=== PATIENT | male | born 1955 | race Caucasian/White ===

== ENCOUNTER 2016-07-14 17:29 | Emergency (ER) | payer MEDICARE, OTHER ==
[~2016-07-14 17:29] MED LIST: ACET500CAP PO; AMITIZA24 PO; BABY OIL; BABY OIL OPH; BABY OIL OT; BABY OIL T; BAZA; BAZA TOP; BETADINE SOLUTIO4 OZ T; BISR PR; CALCIUM CARB PEG; CALCIUM WITH VIT D; CALMOSEPTINE EX; CALMOSEPTINE O2.5 OZ TOP; CALMOSEPTINE T; CARBAT200 PO; CARBAT300 PO; CARBATROL; CARBATROL PO; CAT1 PO; CATAPRES2 TOP; CATPATCH1 TOP; CENTRUM TAB1 TAB PO; CITRACAL PEG; CITRACAL PO; CLONIDINE; CLOTRIMAZOLE; CLOTRIMAZOLE T; CONSTULOSE PO; CULTURELLE OR; CULTURELLE PEG; Cetirizine; DIGESTIVE ADVANTAGE PO; DULCOLAX; EPITOL200 MG PO; EXTINA2 % TOP; FIBERSOURCE HN PEG; FIBERSOURCE PO; FLONASE NAS; FOLIC PEG; FOLIC PO; FORTEO SC; GAS-X80 MG PO; GGDM5ML PO; GGEXPUD PO; GOLD BOND POWDER TOP; HARRIS FLUSH ENEMA RC; HIBICLENS; HIBICLENS T; HYDRO; HYDROCO T; HYDROCORT12 EX; HYDROCORT12 TOP; HYDROCORTISONE; HYDROCORTISONE30 GM T; JOHNSON'S BABY OIL; Ketoconazole; LACT30UDL PO; LACTULOSE PO; LINZESS 145 M145 MCG PO; LINZESS 290 M290 MCG PO; Lactulose; MAGOX4 PO; MAXZIDE PEG; MAXZIDE PO; MIRALAXPKT OR; MIRALAXPKT PO; MULTIPLE VIT PO; MULTIVIT/MIN PEG; MULTIVIT/MIN PO; MULTIVITAMI1 PO; MYLICON 40 MG T40 MG PO; MYLICON 80 MG T80 MG PEG; MYLICON 80 MG T80 MG PO; MYTAB GAS80 MG PEG; MYTAB GAS80 MG PO; Miralax; NEUTRA PHOS; NEUTRA PHOS PO; NEXIUM PEG; NEXIUM40 MG PEG; NEXIUM40 MG PO; NEXIUM40 PEG; NEXIUM40 PO; NIZORAL A-D1 % TOP; NIZORSHAM T; NIZORSHAM TOP; Nexium; OS500+D PO; PHENYLEPHRIN10 MG PEG; POVIDONE IODINE 10% EX; POVIDONE IODINE 10% EXT; POVIDONE IODINE T; POVIDONE IODINE TOP; PRILO PO; PRILOSEC40 MG PO; PRIN10 PEG; PROBIOTIC CULTURELLE PO; SELENIUM SHAMPOO T; SELENIUM SHAMPOO TOP; SELENIUM SULFIDE 2.5 TOP; SELENIUM SULFIDE 2.5% EX; SELENIUM SULFIDE 2.5% TOP; SELSUN BLUE3 % EX; SENOKOTSYR PO; SUDAFED PO; Simethicone; T PO; TEG100B PO; TEG200 PO; TEGXR200 PO; THERA MULTI1 ML PEG; Tylenol; VIT C PO; VITAMIN C100 MG PO; VITAMIN D1000 UNI1 PO; VITAMIN D3 PEG; VITAMIN D31000 UNIT PEG; VITAMIN D31000 UNIT PO; VITC500 PO; Vitamin D; ZANTAC150 MG PO; ZESTRIL10 MG PEG; ZINC220C PO; ZOFRAN ODT4 MG PO; ZOFRAN4 PO; ZOFRANODT8 PEG; ZYRTEC ALLGY10 MG PEG; ZYRTEC ALLGY10 MG PO; [UNRECOGNIZED DRUG - CODE] PEG; [UNRECOGNIZED DRUG - CODE] PO; [UNRECOGNIZED DRUG - MIXTURE] PEG; [UNRECOGNIZED DRUG - OTHER]; [UNRECOGNIZED DRUG - OTHER]; [UNRECOGNIZED DRUG - OTHER] PEG; [UNRECOGNIZED DRUG - OTHER] PEG; [UNRECOGNIZED DRUG - OTHER] PO; [UNRECOGNIZED DRUG - OTHER] PO; [UNRECOGNIZED DRUG - OTHER] PO; [UNRECOGNIZED DRUG - OTHER] PR; [UNRECOGNIZED DRUG - OTHER] T; [UNRECOGNIZED DRUG - REMARK] RC; [UNRECOGNIZED DRUG - SUPPLY]; [UNRECOGNIZED DRUG - SUPPLY]
[2016-07-14 17:52] LABS: ASCORBIC ACID (UR NOT ORDER) 40 (NEG); BILIRUBIN, URINE NEGATIVE (NEG); ER URINALYSIS TAT 0 Hrs 10 Mins; KETONE, URINE NEGATIVE (NEG); LEUKOCYTE ESTERASE(NOT OR SMALL (NEG); NITRITE (URINE) NEG (NEG); WBC (NOT ORDERED) (RFLEX) 10 (0-5)
[2016-07-14 18:53] LABS: ER CBC TAT 0 Hrs 14 Mins; HEMATOCRIT 32.8 % (40.0-51.0); HEMOGLOBIN 11.5 g/dL (13.6-17.8); MEAN CORPUS HGB CONC 35.1 g/dL (32.0-36.0); MEAN CORPUSCULAR HEMOGLOB 30.9 pg (26.0-34.0); MEAN CORPUSCULAR VOLUME 88.2 fL (80-100); MEAN PLATELET VOLUME 9.7 fL (9.2-13.0); PLATELET COUNT 398 10/3/uL (150-400); RBC DISTRIBUTION WIDTH 12.4 % (12.0-16.0); RED CELL COUNT 3.72 10/6/uL (4.7-6.1); WHITE BLOOD CELLS 4.6 10/3/uL (4.5-10.5)
[2016-07-14 18:55] LABS: MANUAL DIFF YES %; PARTIAL THROMBO TIME 32.5 SEC (22.5-37.2); PROTIME (NOT ORD) 12.9 SEC (12.0-14.5)
[2016-07-14 19:00] LABS: A/G RATIO 0.7 (0.7-1.9); ALBUMIN 2.9 G/DL (3.5-5.0); ALKALINE PHOSPHATASE 145 U/L (45-117); BUN (BLOOD UREA NITROGEN) 10 MG/DL (6-23); CALCIUM, SERUM 8.1 MG/DL (8.5-10.4); CHLORIDE, SERUM 95 MMOL/L (96-112); CO2 (CARBON DIOXIDE) 27 MMOL/L (24-34); CREATININE 0.46 MG/DL (0.70-1.30); GFR AFRICAN AMERICAN 141 ML/MIN (>=60); GFR NON AFRICAN AMERICAN 122 ML/MIN (>=60); GLUCOSE, SERUM 89 MG/DL (60-99); SGOT(AST) 27 U/L (5-40); SGPT(ALT) 51 U/L (5-65); SODIUM, SERUM 132 MMOL/L (135-148); TOTAL BILIRUBIN 0.5 MG/DL (0-1.2); TOTAL PROTEIN 6.9 G/DL (6.0-8.5)
[2016-07-14 19:19] LABS: BAND NEUTROPHILS 1 %; EOSINOPHILS 5 %; EOSINOPHILS ABSOLUTE (CALC) 0.23 10/3/uL (0.0-0.53); ER DIFF TAT 0 Hrs 40 Mins; LYMPHOCYTES 32 %; LYMPHOCYTES ABSOLUTE (CALC) 1.47 10/3/uL (0.67-4.30); MONOCYTES 10 %; MONOCYTES ABSOLUTE (CALC) 0.46 10/3/uL (0.21-1.20); NEUTROPHILS ABSOLUTE (CALC) 2.44 10/3/uL (2.02-8.40); PLATELET ESTIMATE ADQ (ADEQUATE); RBC MORPHOLOGY NORM (NORMAL); SEGMENTED NEUTROPHIL (0) 52 %; TOTAL NUCLEATED CELLS 100
[2016-09-14] MEDS ORDERED: CATPATCH1 TOP (16:55)
[2016-09-14] MEDS ORDERED: FOLIC PEG (16:57)
[2016-09-14] MEDS ORDERED: KETOCONAZOLE SHAMPOO TOP (17:00)
[2016-11-27] MEDS ORDERED: COLACEUDL PEG (16:44)
[2016-11-27] MEDS ORDERED: [UNRECOGNIZED DRUG - OTHER] TOP (16:46)
[2016-11-27] MEDS ORDERED: CALMOSEPTINE O2.5 OZ TOP (16:48)
[2016-12-15] MEDS ORDERED: KCL20UDL PEG (12:57)
== END 2016-07-14 19:46 | disposition home or self-care (01) ==
LOC: ER 17:29
PROVIDERS: Nurse Practitioner Family
DX: S82.102A Unspecified fracture of upper end of left tibia, initial encounter for closed fracture (principal); S82.492A Other fracture of shaft of left fibula, initial encounter for closed fracture; I10 Essential (primary) hypertension; K21.9 Gastro-esophageal reflux disease without esophagitis; Z85.038 Personal history of other malignant neoplasm of large intestine; X58.XXXA Exposure to other specified factors, initial encounter
CPT/HCPCS: 71010; 73590-LT; 80053; 81001; 85025; 85610; 85730; 87077; 87086; 87186; 93971; 99284

== ENCOUNTER 2016-09-08 11:28 | Inpatient (IN) | payer MEDICARE, OTHER ==
--- NOTE | ~2016-09-08 | CN ---
Consultation Report [facility] [address] [place]. [address] NAME: LILLIANA ROME : 55 STATUS : ADM IN [facility]#: [id number] AGE: 60 ADM/REG DATE : 09/08/16 MR#: [id number] REPORT SERV DATE: 09/12/16 DICTATED BY: GABBY ALBA DATE: 09/12/16 REPORT STATUS : Draft TRANSCRIBED BY: MODKayla DATE: 09/12/16 NEUROLOGY CONSULTATION DATE OF CONSULTATION: 09/12/2016 REASON FOR CONSULTATION: Seizure and hyponatremia. HOSPITALIST: Rex Shaw M.D. HISTORY OF PRESENT ILLNESS: The patient is a 60-year-old male, who came into the hospital with two days worth of acute encephalopathy. According to the family and the staff at [facility], the patient is very jovial, he laughs and communicates with gestures. The staff noticed a drastic change in his behavior. He was brought to the emergency department at [facility]. On admission, it was found that his sodium level was 118, his potassium was 1.7, and his chloride was 70. The patient denied having any upper respiratory infection. He denied having any fever, chills, nausea, vomiting, or diarrhea. The patient has been on Tegretol therapy for many years for his seizures. At this point, the patient's Tegretol was stopped and he was placed on Keppra IV at 1000 mg and then changed to 500 mg IV b.i.d. The patient did not have any seizure activity during the abrupt change. PAST MEDICAL HISTORY: Cerebral palsy, mental retardation, quadriplegia, seizures, hypertension, hyperlipidemia, megacolon, Monmouth syndrome, history of small-bowel obstruction, sick sinus syndrome with pacemaker placement, peptic ulcer disease, Lynn's esophagitis, history of frequent aspiration pneumonia, frequent UTIs, colon cancer, bilateral retinal detachment and resultant blindness, folliculitis, nephrolithiasis, bilateral hip dislocation, levoscoliosis, and clubfeet. PAST SURGICAL HISTORY: Pacemaker placement, PEG tube placement, colectomy, cholecystectomy, and bilateral hip surgery. HOME MEDICATIONS: Dulcolax 10 mg p.r.n. at bedtime, Tegretol 200 mg q.i.d. for a total dose of 800 mg daily, vitamin D3 2000 units daily, Catapres TTS-one patch applied weekly, Nexium 40 mg b.i.d., folic acid 1 mg daily, Nizoral A-D 1% shampoo on Sunday and Sunday, multivitamin daily, simethicone 80 mg q.i.d., and calcium 5 mL b.i.d. ALLERGIES: HIBICLENS AND RED DYE. SOCIAL HISTORY: The patient resides at [facility]. He has two supportive brothers. FAMILY HISTORY: Colon cancer with one brother and coronary artery disease. REVIEW OF SYSTEMS: Unable to obtain from the patient. Consultation Report [place] [id number] [facility] [place]. [address] NAME: LILLIANA ROME : 55 STATUS : ADM IN [facility]#: [id number] AGE: 60 ADM/REG DATE : 09/08/16 MR#: [id number] REPORT SERV DATE: 09/12/16 DICTATED BY: GABBY ALBA DATE: 09/12/16 REPORT STATUS : Draft TRANSCRIBED BY: JIA DATE: 09/12/16 PHYSICAL EXAMINATION: VITAL SIGNS: The patient is a 60-year-old male, who is currently afebrile. Heart rate 95, respiratory rate 16, O2 saturations on room air 97%, blood pressure 126/71. NEURO: The patient is awake. He will respond with gesturing. Orientation unknown at this point. He is blind bilaterally. No obvious focal deficits. He is a quadriplegic. Arms and legs are both contractured. NECK: No carotid bruits or JVD. CHEST: Lung sounds clear, but diminished in the bases. CARDIAC: Regular rate and rhythm. LABORATORY DATA: CBC is normal. BMP at this point, is normal, a.m. cortisol 12.5. ASSESSMENT/PLAN: 1. Epilepsy. I will continue the patient on Keppra, however, I will increase his dose to 750 mg b.i.d., and change him to a suspension that will go in his PEG tube. If the patient develops hostility and aggression which can be common in the 7th or 8th week of therapy, an alternative drug that would be good for mood stabilization and seizure control would be Depakote. 2. Hyponatremia, most likely due to Tegretol therapy, medication has now been discontinued, and the patient is on Keppra. 3. Cerebral palsy. 4. Quadriplegia. Thank you again for including us in consultation. At this point, we will sign off, but are available if needed. ALESSANDRO/JIA Gabby Alba DNP, [facility]- / [id number] CC: Leah Silva TINA *
--- NOTE | ~2016-09-08 | HP ---
History And Physical [place] [address] [place]. [address] NAME: LILLIANA ROME : 55 STATUS : ADM IN [facility]#: [id number] AGE: 60 ADM/REG DATE : 09/08/16 MR#: [id number] REPORT SERV DATE: 09/08/16 DICTATED BY: MEMO BURNETT DATE: 09/08/16 REPORT STATUS : Draft TRANSCRIBED BY: MODL DATE: 09/08/16 DATE OF ADMISSION: 09/08/2016 CHIEF COMPLAINT: Acute encephalopathy. HISTORY OF PRESENT ILLNESS: This is a 60-year-old gentleman with history of cerebral palsy, quadriplegia, seizures, hypertension, amongst many other medical conditions presenting with acute encephalopathy. The patient apparently has developed acute encephalopathy over the past couple of days. The patient simply became less interactive and less alert. At baseline despite his cerebral palsy, the patient is apparently quite interactive with staff at [facility], but the patient seemed to have slow down quite a bit. They actually checked labs at [facility] and his sodium came back at 118. The patient was thus brought to the ER for further evaluation and care. The patient is obviously unable to provide any history, but the patient's sitter was there and I was able to speak to one of the nursing staff at [facility] on phone. There were apparently no changes to his medications or tube feeding regimen in the recent past. The patient has not suffered from any nausea, vomiting, or diarrhea either. The patient also did not have any obvious fevers, chills, cough, or shortness of breath. In the ER, the patient was found to be afebrile and hemodynamically stable. Initial lab evaluation confirmed hyponatremia with sodium of 121. Also, the electrolytes showed potassium of 1.7. The patient was also hypochloremic with chloride level of 70. Rest of the lab work was fairly benign. Chest x-ray showed a possible retrocardiac opacity suggesting pneumonia versus atelectasis. The patient's urinalysis was fairly benign. Internal Medicine consultation was requested for admission of the patient for further evaluation and care. REVIEW OF SYSTEMS: Unable to be obtained from the patient due to his cerebral palsy, limited review of systems obtained from the patient's caregiver. MEDICATIONS: 1. Dulcolax 10 mg OK at bedtime. 2. Calmoseptine ointment to PEG tube site and buttocks. 3. Tegretol 200 mg per PEG four times daily. 4. Vitamin D3 liquid 2000 units per PEG daily. 5. Catapres 0.1 mg topical patch every Sunday. 6. Nexium 40 mg per PEG twice daily. 7. Folic acid 1 mg per PEG daily. 8. Nizoral shampoo Tuesdays and Saturdays. 9. Multivitamins 15 mL per PEG daily. 10.Simethicone 80 mg per PEG four times daily. 11.Calcium carbonate 5 mL per PEG twice daily. ALLERGIES: CHLORHEXIDINE. History And Physical [address] [address] NAME: LILLIANA ROME : 55 STATUS : ADM IN [facility]#: [id number] AGE: 60 ADM/REG DATE : 09/08/16 MR#: [id number] REPORT SERV DATE: 09/08/16 DICTATED BY: MEMO BURNETT DATE: 09/08/16 REPORT STATUS : Draft TRANSCRIBED BY: JIA DATE: 09/08/16 PAST MEDICAL HISTORY: 1. Cerebral palsy. 2. Quadriplegia with more pronounced left-sided hemiplegia. 3. Colon cancer. 4. History of megacolon and Lyle syndrome. 5. Seizure. 6. Hypertension. 7. History of small bowel obstruction. 8. Sick sinus syndrome, status post pacemaker implantation. 9. Peptic ulcer disease and Lynn esophagus. 10.History of aspiration pneumonias, status post PEG/J-tube placement. 11.Urinary tract infections. PAST SURGICAL HISTORY: 1. Colon cancer resection surgery. 2. PEG/J-tube insertion. 3. Cholecystectomy. 4. Pacemaker implantation. FAMILY HISTORY: Colon cancer. SOCIAL HISTORY: The patient does not smoke, drink alcohol, or use any illicit drugs. The patient is a resident of [facility]. PHYSICAL EXAMINATION: VITAL SIGNS: Temperature 98.7, blood pressure 112/66, pulse 80, respiratory rate is 19, saturating 99% on room air. NEURO: The patient is barely alert. The patient again has cerebral palsy and has very limited neurologic exam. The patient is also blind. GENERAL: The patient is awake, does not appear to be in acute distress, and he is minimally cooperative secondary to the cerebral palsy. NECK: No JVD. No lymphadenopathy. Normal thyroid. CHEST: No midline sternotomy scar and no tenderness to palpation. LUNGS: Clear to auscultation bilaterally with normal respiratory effort on room air. CARDIOVASCULAR: Regular rate and rhythm with no murmurs, rubs, or gallops, and PMI is nondisplaced. ABDOMEN: Soft, nontender with active bowel sounds and no organomegaly. EXTREMITIES: No edema. Normal distal pulses. No calf tenderness. SKIN: Clean, dry, warm, and intact. LABORATORY DATA: Sodium is 121, potassium 1.7, chloride 70, BUN 17, creatinine 0.41, glucose 123, calcium is 7.7. White blood cell count is 4.2, hemoglobin 14.1, platelets 265. TSH was 0.71. Chest x-ray is personally interpreted and it shows retrocardiac opacity questionable for pneumonia versus atelectasis. Urinalysis showed a small leukocyte esterase with 13 white blood cells, but otherwise negative for urinary tract infection. ASSESSMENT AND PLAN: This is a 60-year-old gentleman with history of cerebral palsy, History And Physical [address] [address] NAME: LILLIANA ROME : 55 STATUS : ADM IN [facility]#: [id number] AGE: 60 ADM/REG DATE : 09/08/16 MR#: [id number] REPORT SERV DATE: 09/08/16 DICTATED BY: MEMO BURNETT DATE: 09/08/16 REPORT STATUS : Draft TRANSCRIBED BY: JIA DATE: 09/08/16 presenting with acute on chronic metabolic encephalopathy and electrolyte derangements. 1. Acute on chronic metabolic encephalopathy. 2. Hyponatremia with hypochloremia and hypokalemia. 3. Baseline history of cerebral palsy with quadriplegia. 4. History of seizure. 5. Hypertension. 6. Sick sinus syndrome. 7. PEG/J-tube feeding dependent with baseline dysphagia. PLAN: My plan is to admit the patient under telemetry monitoring. The patient will be given IV fluid resuscitation with normal saline with potassium replacement. I will monitor his electrolytes closely with q.4. BMP to make sure that his sodium does not climb too rapidly. I will also go ahead and check TSH along with urine electrolytes. I have requested medical records from [facility] to see if there is any medication changes that was unaware to the nurse. Otherwise, for the rest of stable past medical conditions including hypertension, history of seizure, sick sinus syndrome, et al, I will continue home medications. For tube feeding, I will consult Nutrition for recommendation of correct tube feeding for him. Standard DVT prophylaxis. The patient is full code at this time. YSJean Carlos/MODL Memo Burnett MD / [id number] CC: MD Kvng Ambrosio Tina
--- NOTE | ~2016-09-08 | DS ---
Discharge Summary [facility] [address] [place]. [address] NAME: LILLIANA ROME : 55 STATUS : DIS IN PAT#: [id number] AGE: 60 ADM/REG DATE : 09/08/16 MR#: [id number] REPORT SERV DATE: 09/15/16 DICTATED BY: TORI SHAW DATE: 09/13/16 REPORT STATUS : Draft TRANSCRIBED BY: MODL DATE: 09/13/16 ADMISSION DATE: 09/08/2016 DISCHARGE DATE: 09/13/2016 DIAGNOSES AT DISCHARGE: 1. Acute metabolic encephalopathy, resolved. 2. Hyponatremia, hypokalemia, and hypochloremia, resolved. 3. Enterococcal urinary tract infection. 4. Cerebral palsy with quadriplegia. 5. Seizure disorder. 6. Hypertension. 7. Sick sinus syndrome, post pacemaker placement. 8. Oropharyngeal dysphagia with previous history of pneumonia, status post PEG placement, on enteral alimentation. 9. History of Lynn esophagus and esophagitis. 10.History of Lyle syndrome. 11.History of colon cancer, post resection. 12.History of bilateral hip dislocation. 13.History of recurrent urinary tract infections and renal stones. 14.Blind. 15.Iron deficiency. 16.Chronic anemia. 17.Elevated ammonia, probably related to AED. 18.Recent left lower extremity fracture, followed by [facility]. OPERATIONS AND PROCEDURES: None. PRESENT ILLNESS: This is a 60-year-old white male, [facility] resident, who was triaged in the emergency room on 09/08/2016 at 1128 hours, was brought because of abnormal labs. Admission vital signs, blood pressure 112/66, temperature 98.7, pulse 80, respirations 19, and O2 saturation 99%. After evaluation in the emergency room, he was found to have a sodium of 121, potassium of 1.7, chloride of 70, bicarbonate greater than 45, and an abnormal urinalysis. He was referred to the Hospitalist Service for admission. He was seen by Dr. Huitron and admitted as described on admission history and physical examination. Additional history was that there had been no change reported in his tube feedings or medications; though later during his hospitalization, it became clear that he had been recently changed to Tegretol. ADDITIONAL HISTORY: Per Dr. Huitorn. PHYSICAL EXAMINATION: Per Dr. Huitron. ADMISSION LABORATORY: Per Dr. Huitron. Discharge Summary [facility] [address] [place]. [address] NAME: LILLIANA ROME : 55 STATUS : DIS IN PAT#: [id number] AGE: 60 ADM/REG DATE : 09/08/16 MR#: [id number] REPORT SERV DATE: 09/15/16 DICTATED BY: TORI SHAW DATE: 09/13/16 REPORT STATUS : Draft TRANSCRIBED BY: MODKayla DATE: 09/13/16 HOSPITAL COURSE: He was admitted by Dr. Huitron with: 1. [id number] metabolic encephalopathy. 2. Hyponatremia, hypochloremia, and hypokalemia. 3. Cerebral palsy with quadriplegia. 4. History of seizure disorder. 5. Hypertension. 6. Sick sinus syndrome. 7. PEG/J tube feeding dependent with baseline dysphagia. 8. All in the setting of the above-mentioned comorbidities. His hospital course from admission through 09/11/2016 is as outlined on interim summary dictated by Dr. Huitron. He was seen by the undersigned on 09/12/2016 and 09/13/2016. On 09/12/2016, his brother was present, who thought he was back to his baseline status. Notably, from electrolyte standpoint, his sodium was 140, potassium 4.1, chloride 107, CO2 of 27, BUN 16, and creatinine 0.51. At that time, he was on amoxicillin as a sensitivity-directed therapy for his enterococcal urinary tract infection. His AED had been changed from Tegretol, which was thought by Dr. Huitron to have possibly precipitated his electrolyte abnormalities to Keppra. He had not had any seizures with this change. Given his chronic seizure history and regular Neurology followup, consultation was obtained with the Neurology team for their recommendation. He was seen by Gabby Aly. She concurred with Keppra, but suggested a dosage adjustment. She felt if the patient developed hostility or aggression at the seventh or eighth week of Keppra that an alternative drug for mood stabilization and seizure control would be Depakote. No other recommendations were made. Dr. Yuly Chacko concurred with this recommendation. When seen on 09/13/2016 with his brother in attendance, the patient was thought to be doing better than normal. There were no new findings on exam. His vital signs were stable. His electrolytes were normal. At this point in his hospitalization, it was felt he had achieved a level of improvement and stability, where he could be safely transferred back to [place]. His followup will be with his regular physician there. His medications, all per PEG, will be amoxicillin 500 mg every 12 hours for the next five days, vitamin D 2000 units daily, folic acid 1 mg daily, Keppra 750 mg twice daily, Thera Multi-Vitamin Liquid 15 mL daily, Nexium 40 mg twice daily, simethicone 80 mg tablets four times daily, calcium carbonate 5 mL twice daily. He will continue the following topicals, Nizoral A-D 1% shampoo, Sunday and Sunday, Calmoseptine ointment twice daily to tube site and buttocks areas, and Catapres patch 0.1 mg changing every Sunday. Discharge Summary [address] [address] NAME: LILLIANA ROME : 55 STATUS : DIS IN PAT#: [id number] AGE: 60 ADM/REG DATE : 09/08/16 MR#: [id number] REPORT SERV DATE: 09/15/16 DICTATED BY: TORI SHAW DATE: 09/13/16 REPORT STATUS : Draft TRANSCRIBED BY: JIA DATE: 09/13/16 He will continue Dulcolax suppository 10 mg per rectum at bedtime. He will not use Tegretol 200 mg four times daily at this time. Discharge time, greater than 30 minutes. DICTATED BY: Tori Shaw M.D. DD/JIA Tori Shaw M.D. / [id number] CC: Leah Silva M.D. [place]
--- NOTE | ~2016-09-08 | IDS ---
Interim Discharge Summary [facility] [address] [place]. [address] NAME: LILLIANA ROME : 55 STATUS : ADM IN [facility]#: [id number] AGE: 60 ADM/REG DATE : 09/08/16 MR#: [id number] REPORT SERV DATE: 09/11/16 DICTATED BY: MEMO BURNETT DATE: 09/11/16 REPORT STATUS : Draft TRANSCRIBED BY: MODL DATE: 09/11/16 ADMISSION DATE: 09/08/2016 DISCHARGE DATE: WORKING DIAGNOSES: 1. Acute on chronic metabolic encephalopathy, resolved. 2. Hyponatremia with hypokalemia and hypochloremia. 3. Baseline history of cerebral palsy and quadriplegia. 4. History of seizure. 5. Hypertension. 6. Sick sinus syndrome. 7. Baseline dysphagia with PEG and J-tube feeding dependence. 8. Urine culture positive for enterococcal urinary tract infection. CONSULTANTS: None. PROCEDURES: None. HOSPITAL COURSE: This is a 60-year-old gentleman with his baseline history of cerebral palsy and quadriplegia, who was admitted to the hospital with acute hyponatremia, hypokalemia, as well as metabolic encephalopathy. For details, please refer to my own H and P. In summary, the patient was admitted and was given IV fluid resuscitation as well as replenishment of electrolyte deficiencies. It was noted the patient was on carbamazepine, which could cause SIADH, and as his urine labs were somewhat consistent with SIADH, this was discontinued and the patient was started on Keppra instead. The patient tolerated the transition well, with IV fluid resuscitation, the patient's encephalopathy improved. The patient's sodium was as low as 118, but now it has steadily improved to today's value of 139. The patient is basically back to his baseline health status, but the patient is from [place] and the patient is unable to be transferred back to [place] on a holiday and thus you are monitoring him until we can get him back to [place] safely. Also of note, the patient had a urinalysis that was not overtly positive for urinary tract infection, however, his urine culture did come back positive for greater than 100,000 colonies of enterococcus for which the patient is being treated with amoxicillin. I anticipate the patient may be able to be transferred back to [place] soon. BRUCE/JIA Memo Burnett MD / [id number] CC: Memo Burnett MD Interim Discharge Summary [place] [address] [facility] [address] NAME: LILLIANA ROME : 55 STATUS : ADM IN PAT#: [id number] AGE: 60 ADM/REG DATE : 09/08/16 MR#: [id number] REPORT SERV DATE: 09/11/16 DICTATED BY: MEMO BURNETT DATE: 09/11/16 REPORT STATUS : Draft TRANSCRIBED BY: MODL DATE: 09/11/16 CHLOÉ URIBE
[2016-09-08 12:41] LABS: ASCORBIC ACID (UR NOT ORDER) 40 (NEG); BILIRUBIN, URINE NEGATIVE (NEG); ER URINALYSIS TAT 0 Hrs 13 Mins; KETONE, URINE NEGATIVE (NEG); LEUKOCYTE ESTERASE(NOT OR SMALL (NEG); NITRITE (URINE) NEG (NEG); WBC (NOT ORDERED) (RFLEX) 13 (0-5)
[2016-09-08 13:51] LABS: BASOPHILS 0 %; EOSINOPHILS 1.9 %; EOSINOPHILS ABSOLUTE 0.08 10/3/uL (0.0-0.53); ER CBC TAT 0 Hrs 24 Mins; HEMOGLOBIN 14.1 g/dL (13.6-17.8); IMMATURE GRANULOCYTES 0.2 %; IMMATURE GRANULOCYTES ABSOLUTE 0.01 10/3/uL (0.0-0.11); LYMPHOCYTES 15.9 %; LYMPHOCYTES ABSOLUTE 0.66 10/3/uL (0.67-4.30); MEAN CORPUS HGB CONC 37.5 g/dL (32.0-36.0); MEAN CORPUSCULAR HEMOGLOB 30.7 pg (26.0-34.0); MEAN CORPUSCULAR VOLUME 81.7 fL (80-100); MONOCYTES 11.3 %; MONOCYTES ABSOLUTE 0.47 10/3/uL (0.21-1.20); NEUTROPHILS 70.7 %; NEUTROPHILS ABSOLUTE 2.94 10/3/uL (2.02-8.40); PLATELET COUNT 265 10/3/uL (150-400); RBC DISTRIBUTION WIDTH 12.5 % (12.0-16.0); WHITE BLOOD CELLS 4.2 10/3/uL (4.5-10.5)
[2016-09-08 13:52] LABS: HEMATOCRIT 39.5 % (40.0-51.0); MANUAL DIFF NO %
[2016-09-08 14:50] LABS: A/G RATIO 0.9 (0.7-1.9); ALBUMIN 2.8 G/DL (3.5-5.0); BUN (BLOOD UREA NITROGEN) 17 MG/DL (6-23); CALCIUM, SERUM 7.7 MG/DL (8.5-10.4); CREATININE 0.41 MG/DL (0.70-1.30); GFR AFRICAN AMERICAN 148 ML/MIN (>=60); GFR NON AFRICAN AMERICAN 128 ML/MIN (>=60); SGOT(AST) 25 U/L (5-40); SGPT(ALT) 41 U/L (5-65); TOTAL PROTEIN 5.8 G/DL (6.0-8.5)
[2016-09-08 14:51] LABS: CHLORIDE, SERUM 70 MMOL/L (96-112); POTASSIUM, SERUM 1.7 MMOL/L (3.5-5.3); SODIUM, SERUM 121 MMOL/L (135-148)
[2016-09-08 14:52] LABS: ALKALINE PHOSPHATASE 105 U/L (45-117); CO2 (CARBON DIOXIDE) > 45 MMOL/L (24-34); GLUCOSE, SERUM 123 MG/DL (60-99); TOTAL BILIRUBIN 1.1 MG/DL (0-1.2)
[2016-09-08 20:21] LABS: BUN (BLOOD UREA NITROGEN) 18 MG/DL (6-23); CHLORIDE, SERUM 63 MMOL/L (96-112); CREATININE 0.52 MG/DL (0.70-1.30); GFR AFRICAN AMERICAN 134 ML/MIN (>=60); GFR NON AFRICAN AMERICAN 116 ML/MIN (>=60); GLUCOSE, SERUM 129 MG/DL (60-99)
[2016-09-08 20:23] LABS: CALCIUM, SERUM 8.9 MG/DL (8.5-10.4); CO2 (CARBON DIOXIDE) > 45 MMOL/L (24-34); POTASSIUM, SERUM 1.9 MMOL/L (3.5-5.3); SODIUM, SERUM 117 MMOL/L (135-148)
[2016-09-08 23:29] LABS: PROCALCITONIN <0.05 ng/mL (<0.5)
[2016-09-09 01:44] LABS: BUN (BLOOD UREA NITROGEN) 15 MG/DL (6-23); CALCIUM, SERUM 8.3 MG/DL (8.5-10.4); CHLORIDE, SERUM 71 MMOL/L (96-112); CREATININE 0.44 MG/DL (0.70-1.30); GFR AFRICAN AMERICAN 144 ML/MIN (>=60); GFR NON AFRICAN AMERICAN 124 ML/MIN (>=60); GLUCOSE, SERUM 126 MG/DL (60-99); SODIUM, SERUM 120 MMOL/L (135-148)
[2016-09-09 01:47] LABS: CO2 (CARBON DIOXIDE) > 45 MMOL/L (24-34); POTASSIUM, SERUM 2.7 MMOL/L (3.5-5.3)
[2016-09-09 06:14] LABS: BASOPHILS 0 %; EOSINOPHILS 0.2 %; EOSINOPHILS ABSOLUTE 0.01 10/3/uL (0.0-0.53); HEMOGLOBIN 12.7 g/dL (13.6-17.8); IMMATURE GRANULOCYTES 0.3 %; IMMATURE GRANULOCYTES ABSOLUTE 0.02 10/3/uL (0.0-0.11); LYMPHOCYTES ABSOLUTE 0.93 10/3/uL (0.67-4.30); MEAN CORPUS HGB CONC 35.9 g/dL (32.0-36.0); MEAN CORPUSCULAR HEMOGLOB 30.6 pg (26.0-34.0); MEAN PLATELET VOLUME 9.7 fL (9.2-13.0); MONOCYTES 11.9 %; MONOCYTES ABSOLUTE 0.79 10/3/uL (0.21-1.20); NEUTROPHILS 73.6 %; NEUTROPHILS ABSOLUTE 4.87 10/3/uL (2.02-8.40); PLATELET COUNT 286 10/3/uL (150-400); RBC DISTRIBUTION WIDTH 12.5 % (12.0-16.0); RED CELL COUNT 4.15 10/6/uL (4.7-6.1)
[2016-09-09 06:16] LABS: HEMATOCRIT 35.4 % (40.0-51.0); MANUAL DIFF NO %; MEAN CORPUSCULAR VOLUME 85.3 fL (80-100); WHITE BLOOD CELLS 6.6 10/3/uL (4.5-10.5)
[2016-09-09 06:24] LABS: BUN (BLOOD UREA NITROGEN) 12 MG/DL (6-23); CALCIUM, SERUM 8.5 MG/DL (8.5-10.4); CHLORIDE, SERUM 77 MMOL/L (96-112); CREATININE 0.37 MG/DL (0.70-1.30); GFR AFRICAN AMERICAN 154 ML/MIN (>=60); GFR NON AFRICAN AMERICAN 133 ML/MIN (>=60); SODIUM, SERUM 124 MMOL/L (135-148)
[2016-09-09 06:26] LABS: CO2 (CARBON DIOXIDE) 39 MMOL/L (24-34); GLUCOSE, SERUM 100 MG/DL (60-99); POTASSIUM, SERUM 2.9 MMOL/L (3.5-5.3)
[2016-09-09 15:40] LABS: BUN (BLOOD UREA NITROGEN) 10 MG/DL (6-23); CALCIUM, SERUM 8.6 MG/DL (8.5-10.4); CHLORIDE, SERUM 86 MMOL/L (96-112); CO2 (CARBON DIOXIDE) 38 MMOL/L (24-34); CREATININE 0.41 MG/DL (0.70-1.30); GFR AFRICAN AMERICAN 148 ML/MIN (>=60); GFR NON AFRICAN AMERICAN 128 ML/MIN (>=60); GLUCOSE, SERUM 87 MG/DL (60-99); SODIUM, SERUM 129 MMOL/L (135-148)
[2016-09-09 15:42] LABS: POTASSIUM, SERUM 4.1 MMOL/L (3.5-5.3)
[2016-09-09 20:59] LABS: BUN (BLOOD UREA NITROGEN) 11 MG/DL (6-23); CALCIUM, SERUM 8.7 MG/DL (8.5-10.4); CHLORIDE, SERUM 88 MMOL/L (96-112); CO2 (CARBON DIOXIDE) 38 MMOL/L (24-34); CREATININE 0.33 MG/DL (0.70-1.30); GFR AFRICAN AMERICAN 162 ML/MIN (>=60); GFR NON AFRICAN AMERICAN 140 ML/MIN (>=60); SODIUM, SERUM 131 MMOL/L (135-148)
[2016-09-09 21:00] LABS: GLUCOSE, SERUM 110 MG/DL (60-99); POTASSIUM, SERUM 3.6 MMOL/L (3.5-5.3)
[2016-09-10 04:44] LABS: BASOPHILS 0.2 %; BASOPHILS ABSOLUTE 0.01 10/3/uL (0.0-0.16); EOSINOPHILS 0.4 %; EOSINOPHILS ABSOLUTE 0.02 10/3/uL (0.0-0.53); HEMOGLOBIN 11.6 g/dL (13.6-17.8); IMMATURE GRANULOCYTES 0.4 %; IMMATURE GRANULOCYTES ABSOLUTE 0.02 10/3/uL (0.0-0.11); LYMPHOCYTES 22.7 %; LYMPHOCYTES ABSOLUTE 1.13 10/3/uL (0.67-4.30); MEAN CORPUSCULAR HEMOGLOB 30.5 pg (26.0-34.0); MEAN PLATELET VOLUME 9.6 fL (9.2-13.0); MONOCYTES 9.9 %; MONOCYTES ABSOLUTE 0.49 10/3/uL (0.21-1.20); NEUTROPHILS 66.4 %; PLATELET COUNT 286 10/3/uL (150-400)
[2016-09-10 04:49] LABS: BUN (BLOOD UREA NITROGEN) 12 MG/DL (6-23); CALCIUM, SERUM 8.7 MG/DL (8.5-10.4); CHLORIDE, SERUM 94 MMOL/L (96-112); CO2 (CARBON DIOXIDE) 38 MMOL/L (24-34); CREATININE 0.35 MG/DL (0.70-1.30); GFR AFRICAN AMERICAN 158 ML/MIN (>=60); GFR NON AFRICAN AMERICAN 136 ML/MIN (>=60); GLUCOSE, SERUM 125 MG/DL (60-99); POTASSIUM, SERUM 3.6 MMOL/L (3.5-5.3); SODIUM, SERUM 134 MMOL/L (135-148)
[2016-09-10 04:50] LABS: MANUAL DIFF NO %; MEAN CORPUS HGB CONC 34.1 g/dL (32.0-36.0); MEAN CORPUSCULAR VOLUME 89.5 fL (80-100)
[2016-09-10 18:17] LABS: BUN (BLOOD UREA NITROGEN) 12 MG/DL (6-23); CALCIUM, SERUM 8.9 MG/DL (8.5-10.4); CHLORIDE, SERUM 101 MMOL/L (96-112); CO2 (CARBON DIOXIDE) 34 MMOL/L (24-34); CREATININE 0.32 MG/DL (0.70-1.30); GFR AFRICAN AMERICAN 164 ML/MIN (>=60); GFR NON AFRICAN AMERICAN 142 ML/MIN (>=60); GLUCOSE, SERUM 104 MG/DL (60-99); POTASSIUM, SERUM 4.3 MMOL/L (3.5-5.3); SODIUM, SERUM 139 MMOL/L (135-148)
[2016-09-12 06:37] LABS: BASOPHILS 0.2 %; BASOPHILS ABSOLUTE 0.01 10/3/uL (0.0-0.16); EOSINOPHILS 2.2 %; EOSINOPHILS ABSOLUTE 0.11 10/3/uL (0.0-0.53); HEMOGLOBIN 11.9 g/dL (13.6-17.8); IMMATURE GRANULOCYTES 0.4 %; IMMATURE GRANULOCYTES ABSOLUTE 0.02 10/3/uL (0.0-0.11); LYMPHOCYTES ABSOLUTE 1.29 10/3/uL (0.67-4.30); MANUAL DIFF NO %; MEAN CORPUS HGB CONC 33.1 g/dL (32.0-36.0); MEAN CORPUSCULAR HEMOGLOB 30.4 pg (26.0-34.0); MEAN CORPUSCULAR VOLUME 92.1 fL (80-100); MONOCYTES 10.5 %; MONOCYTES ABSOLUTE 0.52 10/3/uL (0.21-1.20); NEUTROPHILS 60.7 %; NEUTROPHILS ABSOLUTE 3.01 10/3/uL (2.02-8.40); PLATELET COUNT 322 10/3/uL (150-400); RBC DISTRIBUTION WIDTH 13.6 % (12.0-16.0); RED CELL COUNT 3.91 10/6/uL (4.7-6.1)
[2016-09-12 06:51] LABS: CALCIUM, SERUM 9.3 MG/DL (8.5-10.4); CHLORIDE, SERUM 107 MMOL/L (96-112); CREATININE 0.45 MG/DL (0.70-1.30); GFR AFRICAN AMERICAN 143 ML/MIN (>=60); GFR NON AFRICAN AMERICAN 123 ML/MIN (>=60); GLUCOSE, SERUM 112 MG/DL (60-99); POTASSIUM, SERUM 4.1 MMOL/L (3.5-5.3); SODIUM, SERUM 140 MMOL/L (135-148)
[2016-09-12 06:52] LABS: BUN (BLOOD UREA NITROGEN) 16 MG/DL (6-23); CO2 (CARBON DIOXIDE) 27 MMOL/L (24-34)
[2016-09-12 13:45] LABS: FERRITIN 134 NG/ML (26-388)
[2016-09-13 10:49] LABS: BASOPHILS 0.2 %; BASOPHILS ABSOLUTE 0.01 10/3/uL (0.0-0.16); EOSINOPHILS 0.8 %; EOSINOPHILS ABSOLUTE 0.04 10/3/uL (0.0-0.53); HEMATOCRIT 36.8 % (40.0-51.0); HEMOGLOBIN 12.3 g/dL (13.6-17.8); IMMATURE GRANULOCYTES 0.2 %; IMMATURE GRANULOCYTES ABSOLUTE 0.01 10/3/uL (0.0-0.11); LYMPHOCYTES 22.9 %; LYMPHOCYTES ABSOLUTE 1.13 10/3/uL (0.67-4.30); MEAN CORPUS HGB CONC 33.4 g/dL (32.0-36.0); MEAN CORPUSCULAR HEMOGLOB 31.3 pg (26.0-34.0); MEAN CORPUSCULAR VOLUME 93.6 fL (80-100); MONOCYTES 9.1 %; MONOCYTES ABSOLUTE 0.45 10/3/uL (0.21-1.20); NEUTROPHILS 66.8 %; NEUTROPHILS ABSOLUTE 3.29 10/3/uL (2.02-8.40); PLATELET COUNT 344 10/3/uL (150-400); RBC DISTRIBUTION WIDTH 13.9 % (12.0-16.0); RED CELL COUNT 3.93 10/6/uL (4.7-6.1); WHITE BLOOD CELLS 4.9 10/3/uL (4.5-10.5)
[2016-09-13 10:51] LABS: MANUAL DIFF NO %
[2016-09-13 11:01] LABS: BUN (BLOOD UREA NITROGEN) 16 MG/DL (6-23); CALCIUM, SERUM 9.3 MG/DL (8.5-10.4); CHLORIDE, SERUM 111 MMOL/L (96-112); CO2 (CARBON DIOXIDE) 27 MMOL/L (24-34); CREATININE 0.51 MG/DL (0.70-1.30); GFR AFRICAN AMERICAN 135 ML/MIN (>=60); GFR NON AFRICAN AMERICAN 117 ML/MIN (>=60); GLUCOSE, SERUM 133 MG/DL (60-99); POTASSIUM, SERUM 4.1 MMOL/L (3.5-5.3); SODIUM, SERUM 144 MMOL/L (135-148)
[2016-09-13] MEDS ORDERED: AUG500 PEG (14:35)
[2016-09-13] MEDS ORDERED: KEPPRA750 MG PEG (14:36)
[2016-09-14] MEDS ORDERED: CATPATCH1 TOP (16:55)
[2016-09-14] MEDS ORDERED: FOLIC PEG (16:57)
[2016-09-14] MEDS ORDERED: KETOCONAZOLE SHAMPOO TOP (17:00)
[2016-09-14] MEDS ORDERED: BISR PR ×2 (17:03→17:04)
[2016-09-14] MEDS ORDERED: NEXIUM40 MG PEG (17:05)
[2016-09-14] MEDS ORDERED: MYTAB GAS80 MG PEG (17:07)
[2016-09-14] MEDS ORDERED: [UNRECOGNIZED DRUG - OTHER] PEG (17:09)
[2016-09-14] MEDS ORDERED: VITAMIN D3 PEG (17:11)
[2016-09-14] MEDS ORDERED: THERA MULTI1 ML PEG (17:12)
[2016-09-14] MEDS ORDERED: CALMOSEPTINE EX (17:16)
[2016-09-14] MEDS ORDERED: AMOXIL500 MG PO (17:18)
[2016-09-14] MEDS ORDERED: KEPPRAUDL PEG (17:19)
[2016-09-14] MEDS ORDERED: [UNRECOGNIZED DRUG - OTHER] PEG (17:23)
[2016-09-14] MEDS ORDERED: SENNA PEG (17:23)
[2016-09-14] MEDS ORDERED: SUDAFED PE PEG (17:25)
[2016-11-27] MEDS ORDERED: COLACEUDL PEG (16:44)
[2016-11-27] MEDS ORDERED: [UNRECOGNIZED DRUG - OTHER] TOP (16:46)
[2016-11-27] MEDS ORDERED: CALMOSEPTINE O2.5 OZ TOP (16:48)
[2016-12-15] MEDS ORDERED: KCL20UDL PEG (12:57)
== END 2016-09-13 15:40 | disposition home or self-care (01) | DRG 640 ==
LOC: ER 11:28 → 6NO 15:50
PROVIDERS: Hospitalist; Internal Medicine
DX: E87.1 Hypo-osmolality and hyponatremia (principal); G93.41 Metabolic encephalopathy; R13.10 Dysphagia, unspecified; N39.0 Urinary tract infection, site not specified; G80.8 Other cerebral palsy; I10 Essential (primary) hypertension; B95.2 Enterococcus as the cause of diseases classified elsewhere; G40.909 Epilepsy, unspecified, not intractable, without status epilepticus; E87.6 Hypokalemia; E87.8 Other disorders of electrolyte and fluid balance, not elsewhere classified; Z93.4 Other artificial openings of gastrointestinal tract status; Z85.038 Personal history of other malignant neoplasm of large intestine; Z87.11 Personal history of peptic ulcer disease; Z87.440 Personal history of urinary (tract) infections; Z90.49 Acquired absence of other specified parts of digestive tract; Z87.442 Personal history of urinary calculi; Z95.0 Presence of cardiac pacemaker
CPT/HCPCS: 71010; 71260; 80048; 80053; 81001; 82140; 82533; 82570; 82728; 83605; 83735; 83935; 84145; 84300; 84443; 84550; 85025; 87040; 87077; 87086; 87186; 87449; 93005; 96365; 99285; A9270-GY; C9113; J0290; J0456; J1953; Q9967

== ENCOUNTER 2016-09-14 17:01 | Inpatient (IN) | payer MEDICARE, OTHER ==
--- NOTE | ~2016-09-14 | HP ---
History And Physical [place] [id number] [facility] [place]. [address] NAME: LILLIANA ROME : 55 STATUS : ADM Angel PAT#: [id number] AGE: 60 ADM/REG DATE : 09/14/16 MR#: [id number] REPORT SERV DATE: 09/14/16 DICTATED BY: LORNA HUDSON DATE: 09/14/16 REPORT STATUS : Draft TRANSCRIBED BY: MODL DATE: 09/14/16 DATE OF ADMISSION: 09/14/2016 CHIEF COMPLAINT: Seizure. HISTORY OF PRESENT ILLNESS: The patient is a 60-year-old male. He has a past medical history significant for cerebral palsy, quadriplegia, seizures, and hypertension. He had a recent hospitalization for encephalopathy, metabolic, felt secondary to electrolyte abnormalities, low sodium and potassium, secondary to his seizure medications, and was recently discharged on 09/13/2016. The patient back at [facility] was doing fine until around 2:30 this afternoon. Caregiver states that he had three brief less than one minute episodes where he appeared he was having a seizure. He was less responsive. Caregiver states he was gurgling and foaming at the mouth. She stated there was each episode lasted less than a minute, they were three in total, and he has had no further similar activities since that time. She states the other concern there was possibly some coffee-ground material in his bag from his G-tube, although that is dark and appears normal at the moment. She states they were in the process of evaluating that when he had a seizure. When he was recently here, he was placed on Keppra. His Tegretol was discontinued, and his set dose of the Keppra was increased. He apparently is to his baseline now per the caregiver. His brother is also here with him. The patient is communicative with them by gesture and they have stated he has told them he was wanting something to eat, etc., so it does appear he is back to his baseline now. His initial vital signs show some hypotension when he came in and tachycardia that has resolved. His current BP is 117/72 and his heart rate is approximately 100. His electrolytes are still normal, although as compared to his last visit, his LFTs are up a bit. He has post cholecystectomy. Otherwise, it appears he is at his baseline. PAST MEDICAL HISTORY: As covered above. PAST SURGICAL HISTORY: He has had a cholecystectomy. He has had a GJ tube placed. He has had a colon resection for cancer and he has had a pacemaker placement. CURRENT MEDICATIONS: Amoxil 500 b.i.d., Dulcolax 10 per rectum and at h.s., Calmoseptine ointment, vitamin D3, Catapres patch change on Tuesdays, Nexium 40 per G-tube b.i.d., folic acid 1 mg, Keppra 750 b.i.d., multivitamin, simethicone 80 four times a day, ketoconazole shampoo, calcium, senna, and Sudafed p.r.n. ALLERGIES: ONLY LISTED HIBICLENS. FAMILY HISTORY: Positive for colon cancer. SOCIAL HISTORY: He does not drink or smoke. REVIEW OF SYSTEMS: The patient is unable to give directly. Caregivers and family members have noticed no other obvious symptoms. History And Physical [address] [address] NAME: LILLIANA ROME : 55 STATUS : ADM Angel PAT#: [id number] AGE: 60 ADM/REG DATE : 09/14/16 MR#: [id number] REPORT SERV DATE: 09/14/16 DICTATED BY: LORNA HUDSON DATE: 09/14/16 REPORT STATUS : Draft TRANSCRIBED BY: JIA DATE: 09/14/16 PHYSICAL EXAMINATION: VITAL SIGNS: BP 117/72, temperature 98.3, and pulse 100. GENERAL: He is awake, no obvious seizure activity present. HEENT: Grossly unremarkable. NECK: Supple. HEART: Tachycardic. LUNGS: Clear to auscultation. ABDOMEN: No obvious abnormality around his GJ tube. He has somewhat hyperactive bowel sounds. He does not appear tender to palpation of his abdomen as best can be determined. EXTREMITIES: He has a splint on the left leg. Caregiver reports he has very early pressure sore on his heel. The right extremity is without edema. NEUROLOGICAL: Exam hard to assess, but again per caregivers and family, he seems to be at his baseline. LABORATORY DATA: Sodium 142, potassium 4.7, chloride 107, CO2 of 29, BUN and creatinine are 21 and 0.56, glucose of 106. AST and ALT are 64 and 145 and alkaline phosphatase 136. White count 6, H and H of 12.5 and 37.5, and platelets 342. Chest x-ray is negative, and EKG shows no acute ischemic changes. ASSESSMENT: Brief recurrent seizure after recent change in his seizure medications. PLAN: 1. The patient has been admitted for observations for any recurrent seizure activity and treatment as appropriate. 2. We will not start his tube feeds tonight. We will monitor his serial H and Hs and continue his PPI if there is any question of some gastritis or bleeding. We will not start subcu DVT prophylaxis for same reason. We will do a KUB tonight. 3. We will check a CPK with his recent seizure, although again, he had it very brief. 4. We will check a lipase level and check repeat LFTs in the morning. We will check a mag and phos and a serum lactate. 5. IV fluids this evening. 6. We will go ahead and continue to use his tube for medications. 7. Dr. Shaw will product picker his care in the a.m. TLF/MODL Lorna Hudson M.D. / [id number] CC: DO Dileep Linares M.D.
--- NOTE | ~2016-09-14 | CN ---
Consultation Report [facility] [address] [place]. [address] NAME: LILLIANA VERONICA : 55 STATUS : ADM IN PAT#: [id number] AGE: 60 ADM/REG DATE : 09/15/16 MR#: [id number] REPORT SERV DATE: 09/15/16 DICTATED BY: XI MCCULLOUGH DATE: 09/15/16 REPORT STATUS : Draft TRANSCRIBED BY: MODL DATE: 09/15/16 CONSULTATION DATE OF CONSULTATION: 09/15/2016 REASON FOR CONSULTATION: Abdominal distention. HISTORY OF PRESENT ILLNESS: Mr. Veronica is a very unfortunate 60-year-old gentleman, who has some underlying problems with cerebral palsy and quadriplegia with seizure disorder and has had trouble with encephalopathy in the past. He has also had history of Ocala's syndrome. According to the family, the patient was brought in here for a seizure disorder. We were consulted for abdominal distention. 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 It was felt that his abdomen may have been little more tighter this time. The patient's last colonoscopy was 08/21/2013, which showed evidence of prior end-to-side ileocolonic anastomosis in the sigmoid colon at 24 cm. We were consulted for abdominal distention. I have reviewed the films with Dr. Mcknight, this is not much different from his previous CT scan, showing distention, may be just a tad bit more, but not significantly worse. Most of the distention was in the transverse colon measuring 6.4 cm. On examination, his abdomen is distended, but not tense. It is somewhat soft, I can press, and it is not tight. Bowel sounds are hypoactive, but there is no tenderness. At this point, I did a digital rectal exam, and as soon as I put my finger in the rectum, large amounts of liquid stool and air were passing out, and then I inserted a rectal tube with which more air came out. After that, repeat examination was done and the abdomen was much much more softer, which also was examined by the nurse, and she felt it was softer also. Chemistry panel today reveals a chloride of 113 and an albumin of 3.2. AST 51, ALT 142. White count was 6, hemoglobin 12.5. After reviewing everything, it appears that this is a part of a chronic problem that he has, which is pseudo-obstruction and Lyle syndrome. I believe after the rectal exam, and after all the liquid stool and air came out, the abdomen feels much more softer. Bowel sounds are present, but hypoactive, but the abdomen is not tender at all. RECOMMENDATIONS: At this point, nothing active to be done from a GI standpoint. Can resume G-tube feedings and connect G-tube to the suction port. Discussed with the nurse. REHAB SERVICES AIDE/MODL Consultation Report [facility] [address] [place]. [address] NAME: LILLIANA VERONICA : 55 STATUS : ADM IN PAT#: [id number] AGE: 60 ADM/REG DATE : 09/15/16 MR#: [id number] REPORT SERV DATE: 09/15/16 DICTATED BY: XI MCCULLOUGH DATE: 09/15/16 REPORT STATUS : Draft TRANSCRIBED BY: JIA DATE: 09/15/16 Kenneth Mccullough M.D. / [id number] CC: MD Dileep Nunez M.D. Munford Yates III, M.D.
--- NOTE | ~2016-09-14 | CN ---
Consultation Report [facility] [address] [place]. [address] NAME: LILLIANA ROME : 55 STATUS : ADM IN PAT#: [id number] AGE: 60 ADM/REG DATE : 09/15/16 MR#: [id number] REPORT SERV DATE: 09/15/16 DICTATED BY: DATE: REPORT STATUS : Draft TRANSCRIBED BY: MODL DATE: 09/15/16 NEUROLOGY CONSULTATION DATE OF CONSULTATION: 09/15/2016 REASON FOR CONSULT: Seizure. HISTORY OF PRESENT ILLNESS: This is a 60-year-old male with pre-existing cerebral palsy as well as seizure disorder, presented to [facility] secondary to seizure episodes with the patient noted to have seizure by hospitality housekeeper on 09/14/2016. The patient's seizure was described to brother to having seizures, that was brief 1 minute in duration with the patient noted to have three total seizures. The patient's brother reports no other detail was provided to him regarding seizure characteristics that the patient recently was noted to have seizure medication changed from Tegretol to Keppra secondary to hyponatremia issues. The patient was subsequently discharged from the hospital, back to [place] without apparent significant difficulties. The patient's brother reports after hospital discharge, the patient does not appear to have any behavioral issue, was not noted to have any on problems, no recent other illnesses. No fever, chills, nausea, vomiting. The patient's brother reports that the patient currently is back to baseline mental status with the patient baseline is nonverbal, was unable to see anything except for bright lights, and was noted to have contracture of extremity, was bed-bound. The patient however usually will smile and gesture to family members and caretakers. The patient's brother did not notice any focal weakness or numbness and did not notice any worsening generalized weakness. The patient's brother denies any recent nausea, vomiting, or decreasing p.o. intake. The patient does have a PEG tube in place and does not take anything by mouth. The patient's brother does reports mild worsening abdominal distention, reports increased tube feeds recently, but otherwise denies any abnormalities in bowel movements. Other than changing from Tegretol to Keppra, the patient did not have any other recent medication changes. PAST MEDICAL HISTORY: Significant for history of recent hyponatremia, history of long- standing seizure disorder, previously well controlled. The patient does have a history of cerebral palsy and lives in a residential with the patient's baseline noted to have retinal detachment as well as blindness, only able to see bright light. The patient also has had a pacemaker placement. The patient also in addition was noted to have GJ tube placed. The patient was noted to have allergy to Hibiclens. FAMILY HISTORY: Significant for colon cancer. SOCIAL HISTORY: Denies tobacco, alcohol, or recreational drug usage. CURRENT MEDICATIONS: Consist of amoxicillin, Dulcolax, vitamin D3, Catapres patch, Nexium, folic acid, Keppra 750 mg p.o. b.i.d., multivitamins, simethicone, ketoconazole shampoo, calcium, senna, and Sudafed p.r.n. Consultation Report [facility] [address] [place]. [address] NAME: LILLIANA ROME : 55 STATUS : ADM IN [facility]#: [id number] AGE: 60 ADM/REG DATE : 09/15/16 MR#: [id number] REPORT SERV DATE: 09/15/16 DICTATED BY: DATE: REPORT STATUS : Draft TRANSCRIBED BY: MODL DATE: 09/15/16 REVIEW OF SYSTEMS: Unable to be obtained secondary to the patient's mental status, per family members otherwise negative. PHYSICAL EXAMINATION: VITAL SIGNS: At this time of evaluation, the patient was noted to have overnight vital signs with T-max of 98.2, heart rate of 107 to 144, respirations of 16 to 20, and blood pressure of 116 to 134 over 60 to 72. GENERAL: The patient is well developed, well nourished, in no acute distress. CARDIOVASCULAR: Regular rate and rhythm. No carotid bruits were otherwise auscultated. PULMONARY: Clear to auscultation bilaterally. NEUROLOGICAL: Generally, the patient is alert. The patient was noted to have difficulty following commands, was otherwise nonverbal. The patient does smiles when interactive and was noted to have a head shaking which according to the family members being kind of part of the patient's behavior. The patient does have some spontaneous movement of the bilateral upper extremity; however the patient was noted to have deformed bilateral lower extremity with the patient noted to have generalized contractures at the time of evaluation as well as increased muscle tone, the patient was noted to have hyperreflexia, bilateral upper and lower extremities. Gait and cerebellar examination was unable to be evaluated due to the patient's mental status. The patient is baseline nonambulatory. The patient unfortunately is baseline, does not follow commands. Facial expression appeared to be symmetric with the patient does demonstrating sensation to bilateral face with the patient also noted to have sensation to bilateral upper and lower extremity. 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 LABORATORY STUDIES: Demonstrated white blood cell count of 6.0, hemoglobin of 12.5, hematocrit of 37.5, and platelet count of 342. Chemistry panel, sodium 148, potassium 3.6, chloride 113, bicarb 28, BUN of 17, creatinine of 0.47, glucose of 99, calcium of 8.8, magnesium of 2.1. No neuroimaging was otherwise obtained at the time of evaluation. IMPRESSION: 1. Seizure disorder, intractable. The patient previously was noted to have well controlled seizure on Tegretol. Unfortunately secondary to hyponatremia, Tegretol was discontinued and Keppra was started. The patient is back to baseline mental status at the time of evaluation. We will add Vimpat IV b.i.d. 100 mg to the patient's seizure medication regimen. If the patient does not have any further GI issues, we will plan to change the patient's seizure medication to p.o. formulation on 09/16/2016. We will not obtain EEG at this time as the patient was noted to be back to baseline mental status per family members. RECOMMENDATIONS: 1. Vimpat 100 mg IV b.i.d. 2. Continue Keppra. 3. Plan to change seizure medication to p.o. formulation, if the patient's GI issues has resolved on 09/16/2016. Consultation Report [facility] [address] [place]. [address] NAME: LILLIANA ROME : 55 STATUS : ADM IN [facility]#: [id number] AGE: 60 ADM/REG DATE : 09/15/16 MR#: [id number] REPORT SERV DATE: 09/15/16 DICTATED BY: DATE: REPORT STATUS : Draft TRANSCRIBED BY: MODL DATE: 09/15/16 [facility]/JIA Cristi Chacko MD / [id number] CC: MD Dileep Nunez M.D.
--- NOTE | ~2016-09-14 | DS ---
Discharge Summary [facility] [address] [place]. [address] NAME: LILLIANA ROME : 55 STATUS : DIS IN PAT#: [id number] AGE: 60 ADM/REG DATE : 09/15/16 MR#: [id number] REPORT SERV DATE: 09/20/16 DICTATED BY: LOUIE ARMAS DATE: 09/19/16 REPORT STATUS : Draft TRANSCRIBED BY: JIA DATE: 09/19/16 ADMISSION DATE: 09/15/2016 DISCHARGE DATE: 09/19/2016 CONSULTATION: Gastroenterology, Kenneth Mccullough M.D. INVASIVE PROCEDURE: None. DISCHARGE DIAGNOSES: 1. Acute metabolic encephalopathy, resolved. 2. Pseudo colonic obstruction, resolved. 3. Austin syndrome, resolved. 4. History of enterococcal faecalis urinary tract infection. 5. History of cerebral palsy with quadriplegia. 6. Intractable seizure disorders. 7. Hypertension. 8. History of sick sinus syndrome, post pacemaker placement. 9. History of oropharyngeal dysphagia, status post PEG tube placement and enteral alimentation. 10.Prior history of Lynn's esophagus and esophagitis. For detailed H and P, make reference to Dr. Mark Hough's dictation on 09/14/2016. In brief, this is a 60-year-old male with medical history significant for cerebral palsy, quadriplegia, seizure disorder and hypertension, who had a recent hospitalization for metabolic encephalopathy secondary to electrolyte abnormalities due to adverse effect of seizure medications and was discharged home on new antiseizure medications K[place]. The patient presented back to the hospital 24 hours after discharge on 09/13/2016, with complaints of seizure activities. It was noted the patient had three episodes of seizures prior to presentation. In the ER, vitals: Temperature was 98.2, heart rate was 107 to 144, respiratory rate 16-20, blood pressure was 116-134/62-72. Physical exam was noted. Generally, the patient was alert, although nonverbal at baseline, was not following command. There was bilateral hyperextension of the lower extremities and fixed flexion of the upper extremities which is similar to the patient's known baseline. LABORATORY DATA: White cell count was 6.0, hematocrit was 37.5, hemoglobin 12.5. Creatinine was 0.47. An assessment of seizure disorder was made intractable and the patient was admitted to the Hospitalist Service. HOSPITAL COURSE: 1. Intractable seizure disorder. Neurology was consulted. Recommended to continue Keppra and add Vimpat to the patient's current seizure medications. The patient tolerated the new antiepileptic drug medication (combination of Vimpat and Keppra) without any significant complications. The patient's seizure activities became significantly controlled. No further seizure activity was noted prior to discharge. The patient was Discharge Summary [address] [address] NAME: LILLIANA ROME : 55 STATUS : DIS IN PAT#: [id number] AGE: 60 ADM/REG DATE : 09/15/16 MR#: [id number] REPORT SERV DATE: 09/20/16 DICTATED BY: LOUIE ARMAS DATE: 09/19/16 REPORT STATUS : Draft TRANSCRIBED BY: JIA DATE: 09/19/16 advised to continue Vimpat and Keppra for seizure control as an outpatient. 2. Lyle syndrome. During the course of this admission, the patient developed abdominal distention. CT of the abdomen was done that shows that the patient's PEG tube and G tube was in place, but noted was a pseudo obstruction with a colonic ileus. Gastroenterology was consulted and recommended a manual fecal disimpaction and scheduled laxatives. The patient had significant bowel movements prior to discharge. Abdominal distention was completely resolved. The patient was able to tolerate PEG enteral feeding without any significant residuals. The patient was advised to continue current tube feed regimen at the time of discharge. 3. Recent urinary tract infection with enterococcal faecalis. The patient was continued on antibiotics with cephalosporin during the course of this admission. At the time of discharge, the patient had completed a total of seven days of antibiotic therapy. No further episodes of fever, and white cell count was within normal limits prior to discharge. The patient was advised to continue follow up with primary care physician. 4. Sinus tachycardia. During the course of this admission, the patient had multiple episodes of significant sinus tachycardia with heart range increasing all the way to 140s. This was likely related to the patient's seizure disorder versus recurrent agitations. The patient was started on beta-carmencita during the course of this admission. Heart rate trended down from the 140s to the upper 90s and remained stable. The patient was advised to continue metoprolol 12.5 mg p.o. b.i.d. DISCHARGE DISPOSITION: Back to [facility]. DISCHARGE MEDICATIONS: 1. Dulcolax 10 mg by rectal daily. 2. Dulcolax 10 mg suppository per rectum at bedtime. 3. Vitamin D3, 2000 units daily. 4. Folic acid 1 mg p.o. daily. 5. Vimpat 100 mg p.o. b.i.d. 6. Keppra 750 mg p.o. b.i.d. 7. Multivitamins liquid 15 mL per PEG tube daily. 8. Nexium 40 mg p.o. b.i.d. 9. Simethicone 80 mg p.o. three times a day. 10.Metoprolol 25 mg p.o. b.i.d. 11.Clonidine transdermal patch 0.1 mg/24 hours for q.7 days. Greater than 30 minutes was used to prepare this patient's discharge, reconcile medication, advise the patient on discharge plans and followup. DICTATED BY: MD DANIELA NunezO/JIA Discharge Summary [address] [address] NAME: LILLIANA ROME : 55 STATUS : DIS IN PAT#: [id number] AGE: 60 ADM/REG DATE : 09/15/16 MR#: [id number] REPORT SERV DATE: 09/20/16 DICTATED BY: LOUIE ARMAS DATE: 09/19/16 REPORT STATUS : Draft TRANSCRIBED BY: MODL DATE: 09/19/16 Louie Armas MD / [id number] CC: MD Dileep Nunez M.D.
[~2016-09-14 17:01] MED LIST changes: +AUG500 PEG; +KEPPRA750 MG PEG; +KETOCONAZOLE SHAMPOO TOP
[2016-09-14] MEDS ORDERED: BISR PR ×2 (17:03→17:04)
[2016-09-14] MEDS ORDERED: NEXIUM40 MG PEG (17:05)
[2016-09-14] MEDS ORDERED: MYTAB GAS80 MG PEG (17:07)
[2016-09-14] MEDS ORDERED: [UNRECOGNIZED DRUG - OTHER] PEG (17:09)
[2016-09-14] MEDS ORDERED: VITAMIN D3 PEG (17:11)
[2016-09-14] MEDS ORDERED: THERA MULTI1 ML PEG (17:12)
[2016-09-14] MEDS ORDERED: CALMOSEPTINE EX (17:16)
[2016-09-14] MEDS ORDERED: AMOXIL500 MG PO (17:18)
[2016-09-14 17:19] LABS: BASOPHILS 0.2 %; BASOPHILS ABSOLUTE 0.01 10/3/uL (0.0-0.16); EOSINOPHILS ABSOLUTE 0.06 10/3/uL (0.0-0.53); HEMATOCRIT 37.5 % (40.0-51.0); HEMOGLOBIN 12.5 g/dL (13.6-17.8); IMMATURE GRANULOCYTES 0.5 %; IMMATURE GRANULOCYTES ABSOLUTE 0.03 10/3/uL (0.0-0.11); LYMPHOCYTES 10.1 %; LYMPHOCYTES ABSOLUTE 0.61 10/3/uL (0.67-4.30); MEAN CORPUS HGB CONC 33.3 g/dL (32.0-36.0); MEAN CORPUSCULAR HEMOGLOB 30.8 pg (26.0-34.0); MEAN CORPUSCULAR VOLUME 92.4 fL (80-100); MEAN PLATELET VOLUME 9.2 fL (9.2-13.0); MONOCYTES 9.3 %; MONOCYTES ABSOLUTE 0.56 10/3/uL (0.21-1.20); NEUTROPHILS 78.9 %; NEUTROPHILS ABSOLUTE 4.74 10/3/uL (2.02-8.40); PLATELET COUNT 342 10/3/uL (150-400); RBC DISTRIBUTION WIDTH 14.2 % (12.0-16.0); RED CELL COUNT 4.06 10/6/uL (4.7-6.1)
[2016-09-14] MEDS ORDERED: KEPPRAUDL PEG (17:19)
[2016-09-14 17:21] LABS: MANUAL DIFF NO %
[2016-09-14] MEDS ORDERED: SENNA PEG (17:23)
[2016-09-14] MEDS ORDERED: [UNRECOGNIZED DRUG - OTHER] PEG (17:23)
[2016-09-14] MEDS ORDERED: SUDAFED PE PEG (17:25)
[2016-09-14 17:32] LABS: CALCIUM, SERUM 9.1 MG/DL (8.5-10.4); CHLORIDE, SERUM 107 MMOL/L (96-112); CO2 (CARBON DIOXIDE) 29 MMOL/L (24-34); CREATININE 0.56 MG/DL (0.70-1.30); GFR AFRICAN AMERICAN 130 ML/MIN (>=60); GFR NON AFRICAN AMERICAN 112 ML/MIN (>=60); SGPT(ALT) 145 U/L (5-65); SODIUM, SERUM 142 MMOL/L (135-148); TOTAL BILIRUBIN 0.9 MG/DL (0-1.2)
[2016-09-14 17:33] LABS: A/G RATIO 0.9 (0.7-1.9); ALBUMIN 3.4 G/DL (3.5-5.0); ALKALINE PHOSPHATASE 136 U/L (45-117); BUN (BLOOD UREA NITROGEN) 21 MG/DL (6-23); GLOBULIN 3.8 G/DL (2.5-4.1); GLUCOSE, SERUM 106 MG/DL (60-99); POTASSIUM, SERUM 4.7 MMOL/L (3.5-5.3); TOTAL PROTEIN 7.2 G/DL (6.0-8.5)
[2016-09-14 17:34] LABS: SGOT(AST) 64 U/L (5-40)
[2016-09-14 21:20] LABS: HEMATOCRIT 36.1 % (40.0-51.0)
[2016-09-15 01:28] LABS: HEMOGLOBIN 12.2 g/dL (13.6-17.8)
[2016-09-15 01:50] LABS: A/G RATIO 0.9 (0.7-1.9); ALBUMIN 3.2 G/DL (3.5-5.0); CALCIUM, SERUM 8.8 MG/DL (8.5-10.4); CHLORIDE, SERUM 113 MMOL/L (96-112); CO2 (CARBON DIOXIDE) 28 MMOL/L (24-34); CREATININE 0.47 MG/DL (0.70-1.30); GFR AFRICAN AMERICAN 140 ML/MIN (>=60); GFR NON AFRICAN AMERICAN 121 ML/MIN (>=60); GLOBULIN 3.6 G/DL (2.5-4.1); GLUCOSE, SERUM 99 MG/DL (60-99); SGOT(AST) 51 U/L (5-40); SGPT(ALT) 142 U/L (5-65); SODIUM, SERUM 148 MMOL/L (135-148); TOTAL BILIRUBIN 0.8 MG/DL (0-1.2); TOTAL PROTEIN 6.8 G/DL (6.0-8.5)
[2016-09-15 01:53] LABS: ALKALINE PHOSPHATASE 120 U/L (45-117); BUN (BLOOD UREA NITROGEN) 17 MG/DL (6-23); POTASSIUM, SERUM 3.6 MMOL/L (3.5-5.3)
[2016-09-15 08:57] LABS: HEMATOCRIT 37.7 % (40.0-51.0); HEMOGLOBIN 12.5 g/dL (13.6-17.8)
[2016-09-15 15:02] LABS: HEMATOCRIT 34.6 % (40.0-51.0); HEMOGLOBIN 11.6 g/dL (13.6-17.8)
[2016-09-16 07:32] LABS: INTERNATIONAL NORMAL RATI 1.2 UNITS (-); PROTIME (NOT ORD) 14.8 SEC (12.0-14.5)
[2016-09-16 07:37] LABS: BASOPHILS 0.2 %; BASOPHILS ABSOLUTE 0.01 10/3/uL (0.0-0.16); EOSINOPHILS 0.8 %; EOSINOPHILS ABSOLUTE 0.04 10/3/uL (0.0-0.53); HEMATOCRIT 35.4 % (40.0-51.0); HEMOGLOBIN 11.6 g/dL (13.6-17.8); IMMATURE GRANULOCYTES 0.8 %; IMMATURE GRANULOCYTES ABSOLUTE 0.04 10/3/uL (0.0-0.11); LYMPHOCYTES ABSOLUTE 0.82 10/3/uL (0.67-4.30); MEAN CORPUS HGB CONC 32.8 g/dL (32.0-36.0); MEAN CORPUSCULAR VOLUME 94.7 fL (80-100); MEAN PLATELET VOLUME 8.9 fL (9.2-13.0); MONOCYTES 7.7 %; MONOCYTES ABSOLUTE 0.37 10/3/uL (0.21-1.20); NEUTROPHILS 73.5 %; NEUTROPHILS ABSOLUTE 3.55 10/3/uL (2.02-8.40); PLATELET COUNT 299 10/3/uL (150-400); RBC DISTRIBUTION WIDTH 14.6 % (12.0-16.0); RED CELL COUNT 3.74 10/6/uL (4.7-6.1); WHITE BLOOD CELLS 4.8 10/3/uL (4.5-10.5)
[2016-09-16 07:42] LABS: MANUAL DIFF NO %
[2016-09-16 08:16] LABS: ALKALINE PHOSPHATASE 114 U/L (45-117); CALCIUM, SERUM 8.1 MG/DL (8.5-10.4); CHLORIDE, SERUM 121 MMOL/L (96-112); GFR AFRICAN AMERICAN 150 ML/MIN (>=60); GFR NON AFRICAN AMERICAN 129 ML/MIN (>=60); GLUCOSE, SERUM 92 MG/DL (60-99); PHOSPHORUS, SERUM 1.9 MG/DL (2.5-4.5); SGPT(ALT) 147 U/L (5-65); SODIUM, SERUM 151 MMOL/L (135-148); TOTAL BILIRUBIN 0.9 MG/DL (0-1.2); TOTAL PROTEIN 6.3 G/DL (6.0-8.5)
[2016-09-16 08:17] LABS: BUN (BLOOD UREA NITROGEN) 6 MG/DL (6-23); CO2 (CARBON DIOXIDE) 19 MMOL/L (24-34); DIRECT BILIRUBIN 0.3 MG/DL (0.0-0.4); FOLATE 47.8 NG/ML (>5.2); INDIRECT BILIRUBIN(NOT ORDER) 0.6 MG/DL (0.1-0.9); POTASSIUM, SERUM 4.1 MMOL/L (3.5-5.3); SGOT(AST) 59 U/L (5-40)
[2016-09-16 08:30] LABS: PLATELET ESTIMATE ADQ (ADEQUATE)
[2016-09-17 05:08] LABS: BASOPHILS 0 %; EOSINOPHILS 0.9 %; EOSINOPHILS ABSOLUTE 0.04 10/3/uL (0.0-0.53); HEMATOCRIT 35.8 % (40.0-51.0); HEMOGLOBIN 11.7 g/dL (13.6-17.8); IMMATURE GRANULOCYTES 0.2 %; IMMATURE GRANULOCYTES ABSOLUTE 0.01 10/3/uL (0.0-0.11); LYMPHOCYTES 22.3 %; LYMPHOCYTES ABSOLUTE 0.99 10/3/uL (0.67-4.30); MANUAL DIFF NO %; MEAN CORPUS HGB CONC 32.7 g/dL (32.0-36.0); MEAN CORPUSCULAR HEMOGLOB 30.3 pg (26.0-34.0); MEAN CORPUSCULAR VOLUME 92.7 fL (80-100); MEAN PLATELET VOLUME 8.9 fL (9.2-13.0); MONOCYTES 11.5 %; MONOCYTES ABSOLUTE 0.51 10/3/uL (0.21-1.20); NEUTROPHILS 65.1 %; NEUTROPHILS ABSOLUTE 2.89 10/3/uL (2.02-8.40); PLATELET COUNT 333 10/3/uL (150-400); RBC DISTRIBUTION WIDTH 14.5 % (12.0-16.0); RED CELL COUNT 3.86 10/6/uL (4.7-6.1); WHITE BLOOD CELLS 4.4 10/3/uL (4.5-10.5)
[2016-09-17 05:29] LABS: BUN (BLOOD UREA NITROGEN) 8 MG/DL (6-23); CALCIUM, SERUM 8.6 MG/DL (8.5-10.4); CHLORIDE, SERUM 119 MMOL/L (96-112); CO2 (CARBON DIOXIDE) 21 MMOL/L (24-34); CREATININE 0.41 MG/DL (0.70-1.30); GFR AFRICAN AMERICAN 148 ML/MIN (>=60); GFR NON AFRICAN AMERICAN 128 ML/MIN (>=60); GLUCOSE, SERUM 121 MG/DL (60-99); PHOSPHORUS, SERUM 1.4 MG/DL (2.5-4.5); POTASSIUM, SERUM 3.3 MMOL/L (3.5-5.3); SODIUM, SERUM 147 MMOL/L (135-148)
[2016-09-18 22:31] LABS: THIAMINE 13.6 nmol/L (()); THIAMINE MONOPHOSPHATE 1.5 nmol/L (())
[2016-09-19 04:22] LABS: BUN (BLOOD UREA NITROGEN) 10 MG/DL (6-23); CALCIUM, SERUM 8.6 MG/DL (8.5-10.4); CHLORIDE, SERUM 120 MMOL/L (96-112); CO2 (CARBON DIOXIDE) 22 MMOL/L (24-34); CREATININE 0.47 MG/DL (0.70-1.30); GFR AFRICAN AMERICAN 140 ML/MIN (>=60); GFR NON AFRICAN AMERICAN 121 ML/MIN (>=60); GLUCOSE, SERUM 102 MG/DL (60-99); POTASSIUM, SERUM 3.9 MMOL/L (3.5-5.3); SODIUM, SERUM 145 MMOL/L (135-148)
[2016-09-19] MEDS ORDERED: VIMPAT PEG (10:47)
[2016-09-19] MEDS ORDERED: LOP25 PEG (10:48)
[2016-11-27] MEDS ORDERED: COLACEUDL PEG (16:44)
[2016-11-27] MEDS ORDERED: [UNRECOGNIZED DRUG - OTHER] TOP (16:46)
[2016-11-27] MEDS ORDERED: CALMOSEPTINE O2.5 OZ TOP (16:48)
[2016-12-15] MEDS ORDERED: KCL20UDL PEG (12:57)
== END 2016-09-19 14:44 | DRG 100 ==
LOC: ER 17:01 → 4SO 18:39 → 7NO 19:11
PROVIDERS: Emergency Medicine; Hospitalist; Internal Medicine; Psychiatry & Neurology Neurology
DX: G40.919 Epilepsy, unspecified, intractable, without status epilepticus (principal); G93.41 Metabolic encephalopathy; K56.69 Other intestinal obstruction; G80.9 Cerebral palsy, unspecified; K94.23 Gastrostomy malfunction; N39.0 Urinary tract infection, site not specified; I10 Essential (primary) hypertension; Z90.49 Acquired absence of other specified parts of digestive tract; R00.0 Tachycardia, unspecified; B95.2 Enterococcus as the cause of diseases classified elsewhere; K59.09 Other constipation; E87.6 Hypokalemia; Z95.0 Presence of cardiac pacemaker
CPT/HCPCS: 71010; 74000; 74150; 80048; 80053; 80076; 82140; 82607; 82746; 83605; 83735; 84100; 84132; 84425; 85014; 85018; 85025; 85610; 93005; 93970; 99285; A9270-GY; C9113; C9254; J0290; J1953; J2543; J3360

== ENCOUNTER 2017-01-11 15:33 | Emergency (ER) | payer MEDICARE, OTHER ==
[~2017-01-11 15:33] MED LIST changes: +AMOXIL500 MG PO; +COLACEUDL PEG; +KCL20UDL PEG; +KEPPRAUDL PEG; +LOP25 PEG; +SENNA PEG; +SUDAFED PE PEG; +VIMPAT PEG; +[UNRECOGNIZED DRUG - OTHER] PEG; +[UNRECOGNIZED DRUG - OTHER] PEG; +[UNRECOGNIZED DRUG - OTHER] TOP
== END 2017-01-11 17:07 | disposition home or self-care (01) ==
LOC: ER 15:33
DX: K94.23 Gastrostomy malfunction (principal); G80.9 Cerebral palsy, unspecified; Z88.8 Allergy status to other drugs, medicaments and biological substances; Z79.899 Other long term (current) drug therapy
CPT/HCPCS: 49452; 99283; C1729; C1769; Q9967